=== PATIENT | female | born 1990 | race Caucasian/White ===

== ENCOUNTER → 2025-01-07 11:31 | Outpatient (REF) | payer BC, SELFPAY | LOC: DHSLP 11:31 | PROVIDERS: ATTENDING PHYSICIAN Otolaryngology Facial Plastic Surgery; FAMILY PHYSICIAN Nurse Practitioner Adult Health | DX: G47.30 Sleep apnea, unspecified (principal); R06.83 Snoring | CPT/HCPCS: 95800 ==